=== PATIENT | female | born 2000 ===

== ENCOUNTER 2022-01-27 13:21 | Outpatient (CLI) | payer OTHER | END 2022-01-28 10:30 | disposition home or self-care (01) | LOC: OBS/DEL 13:21 | PROVIDERS: ATTEND Obstetrics & Gynecology | DX: O23.43 Unspecified infection of urinary tract in pregnancy, third trimester (principal); N39.0 Urinary tract infection, site not specified; Z3A.36 36 weeks gestation of pregnancy ==

== ENCOUNTER 2022-02-09 11:00 | Inpatient (IN) | payer OTHER ==
[~2022-02-09] VITALS: Ht 154.9 cm; Wt 2.3 kg
[2022-02-09] MEDS ORDERED: PRENATABS RX T1 EACH PO (13:14)
== END 2022-02-16 13:32 | disposition home or self-care (01) | DRG 788 ==
LOC: OB/GYN 02-14 07:00 → O/R 02-14 10:37 → OB/GYN 02-14 11:00
PROVIDERS: ADMIT Obstetrics & Gynecology; ATTEND Obstetrics & Gynecology
PROC: 4A1HXCZ Monitoring of Products of Conception, Cardiac Rate, External Approach (ICD-10-PCS; 2022-02-14)
PROC: 10D00Z1 Extraction of Products of Conception, Low, Open Approach (ICD-10-PCS; principal; 2022-02-14 07:00)
DX: O32.1XX0 Maternal care for breech presentation, not applicable or unspecified (principal); O36.5930 Maternal care for other known or suspected poor fetal growth, third trimester, not applicable or unspecified; Z3A.38 38 weeks gestation of pregnancy; Z37.0 Single live birth; Z20.822 Contact with and (suspected) exposure to COVID-19